=== PATIENT | female | born 1985 | race Caucasian/White ===

== ENCOUNTER 2016-11-12 10:40 | Emergency (ER) | payer MEDICAID, OTHER ==
[~2016-11-12] VITALS: Ht 165.1 cm; Wt 77.0 kg
[~2016-11-12 10:40] MED LIST: AUG875 PO; DOCU-144 PO; NITR-58 PO; PRENAT PO
[2016-11-12 10:55] VITALS: Ht 165.1 cm; Wt 77.0 kg
[2016-11-12 11:38] LABS: ADD UMIC YES; URINE BILIRUBIN (Dip) NEGATIVE (NEGATIVE); URINE BLOOD (Dip) 1+ (NEGATIVE); URINE COLOR LT. YELLOW (YELLOW); URINE GLUCOSE (Dip) NEGATIVE (NEGATIVE); URINE KETONES (Dip) NEGATIVE (NEGATIVE); URINE LEUKOCYTE ESTERASE (Dip) NEGATIVE (NEGATIVE); URINE NITRITE (Dip) NEGATIVE (NEGATIVE); URINE TOTAL PROTEIN (Dip) NEGATIVE (NEGATIVE); URINE UROBILINOGEN (Dip) 0.2 E.U./dL (0.1-1.0)
[2016-11-12 11:43] LABS: BASOPHILS % 0.3 % (0.0-2.0); EOSINOPHILS # 0.1 10^3/ul (0.0-0.5); EOSINOPHILS % 0.8 % (0.0-7.0); HEMATOCRIT 35.6 % (37.0-47.0); LYMPHOCYTES # 2.4 10^3/ul (0.8-2.9); LYMPHOCYTES % 23.7 % (15.0-51.0); MEAN CORPUSCULAR HEMOGLOBIN 28.5 pg (29.0-33.0); MEAN CORPUSCULAR HGB CONC 33.7 g/dl (32.0-37.0); MEAN CORPUSCULAR VOLUME 84.6 fl (82.0-101.0); MEAN PLATELET VOLUME 7.9 fl (7.4-10.4); MONOCYTE # 0.5 10^3/ul (0.3-0.9); MONOCYTES % 5.1 % (0.0-11.0); NEUTROPHILS % 70.1 % (39.0-77.0); PLATELET COUNT 307 10^3/UL (140-440); RED BLOOD COUNT 4.21 10^6/ul (4.20-5.40); RED CELL DISTRIBUTION WIDTH 14.5 % (11.5-14.5); UNCORRECTED WBC 9.9 10^3/ul (4.8-10.8); WHITE BLOOD COUNT 9.9 10^3/ul (4.8-10.8)
[2016-11-12 11:54] LABS: CONDITION 1; LH ANALYZER COMMENTS 1
--- NOTE | 2016-11-12 12:00 | RADRPT ---
PROCEDURE: US OB. CLINICAL INDICATION: Positive test. Vaginal bleeding. TECHNIQUE: Multiple sonographic images of the uterus were obtained. The images were revi ewed on a PACS workstation. COMPARISON: No prior studies are available for comparison. FINDINGS: There is a single live intrauterine gestation. heart rate is 131 beats per minute. Measurements were made in order to determine age. The results are as follows: BPD = 4.12 cm. HC = 15.97 cm. AC = 15.24 cm. FL = 2.74 cm. Estimated weight is 290 +/- 44 grams. LMP growth percentile is 77 %. Amniotic fluid index is 5.0 cm. Menstrual age by ultrasound dates is 19 weeks 0 days. The estimated date of delivery is 04/08/2017. Position is cephalic and placenta is posterior grade 1. There is no evidence for an abruption or joanna centa previa. IMPRESSION: 1. Single live intrauterine gestation of 19 weeks 0 days menstrual age by ultrasound dates. 2. The estimated date of delivery is 04/08/2017. RPTAT: QQ .Henrry Goss MD, MD Date Time Electronically viewed and signed by .Henrry Goss MD, on 11/12/2016 11:59 .R/
[2016-11-12 12:22] LABS: MUCUS,URINE FEW
--- NOTE | 2016-11-12 12:55 | ERD ---
ER Documentation Chief Complaint Date/Time DATE: 11/12/16 TIME: 12:52 Chief Complaint VAGINAL BLEEDING - 06/01/16 HPI Patient is a 31-year-old female who is with one spontaneous approximately 18 weeks complaining of on and off vaginal bleeding that has been going on for several weeks. Today she went to the OB doctor and she was told to come here to the emergency room because they were unable to find a heart tone on Doppler ultrasound. She denies any pain. Denies any nausea vomiting diarrhea. Denies fever. Denies any dysuria hematuria or urinary frequency. ROS All systems reviewed and are negative except as per history of present illness. Medications Home Meds Active Scripts Nitrofurantoin Monohyd Macrocr* (Macrobid*) 100 Mg Capsr, 100 MG PO BID for 10 Days, CAP Prov:MEENU CARMEN PA-C 08/16/15 Reported Medications Multivit/Min/Fol Ac/Iron/Pren* ( S*) 1 Tab Tab, 1 TAB PO DAILY 11/18/13 Docusate Sodium* (Colace*) 100 Mg Capsule, 100 MG PO BID Y NEEDED FOR CONSTIPATION 11/18/13 Amoxicillin-Clavulanate K* (Augmentin*) 875 Mg Tab, 875 MG PO Q12 X7 DAYS 11/18/13 Allergies Allergies: Coded Allergies: ceftriaxone sodium (Verified Allergy, Mild, hives, 10/31/12) PMhx/Soc History of Surgery: Yes (- ) Anesthesia Reaction: No Hx Neurological Disorder: No Hx Respiratory Disorders: No Hx Cardiac Disorders: No Hx Psychiatric Problems: No Hx Miscellaneous Medical Probl: No Hx Alcohol Use: No Hx Substance Use: No Hx Tobacco Use: No FmHx Family History: No diabetes Physical Exam Vitals Vital Signs Date Time Temp Pulse Resp B/P Pulse Ox O2 Delivery O2 Flow Rate FiO2 11/12/16 10:55 97.5 85 19 116/63 100 Physical Exam General: well developed, well nourished, alert, nontoxic, no distress Head: normocephalic, atraumatic Neck: Supple, nontender, no lymphadenopathy, no midline tenderness Respiratory: Clear to auscaultation bilaterally, speaks in full sentences, no use of accesory muscles or labored breathing, no rales, ronchi, or wheezing Cardiovascular: RRR, No murmurs GI: soft, non tender, non distended, negative murphys sign, negative mcburneys point tenderness, no cva tenderness bilaterally, no rebound or guarding Back: no midline tenderness, no step offs or bony abnormalities, sensation to light touch in tact Result Diagram: 11/12/16 1124 Results 24 hrs Laboratory Tests Test 11/12/16 11:24 Basophils # 0.010^3/ul Basophils % 0.3% Beta HCG, Quantitative 74700.0mIU/ml Blood Morphology Comment Eosinophils # 0.110^3/ul Eosinophils % 0.8% Hematocrit 35.6% Hemoglobin 12.0g/dl Lymphocytes # 2.410^3/ul Lymphocytes % 23.7% Mean Corpuscular Hemoglobin 28.5pg Mean Corpuscular Hemoglobin Concent 33.7g/dl Mean Corpuscular Volume 84.6fl Mean Platelet Volume 7.9fl Monocytes # 0.510^3/ul Monocytes % 5.1% Neutrophils # 7.010^3/ul Neutrophils % 70.1% Nucleated Red Blood Cells # 0.010^3/ul Nucleated Red Blood Cells % 0.0/100WBC Platelet Count 39865^3/UL Red Blood Count 4.2110^6/ul Red Cell Distribution Width 14.5% Urine Bilirubin NEGATIVE Urine Clarity CLEAR Urine Color LT. YELLOW Urine Epithelial Cells FEW Urine Glucose NEGATIVE% Urine Hemoglobin 1+ Urine Ketones NEGATIVE Urine Leukocyte Esterase NEGATIVE Urine Microscopic RBC 5-10/HPF Urine Microscopic WBC 2-5/HPF Urine Mucus FEW Urine Nitrite NEGATIVE Urine Specific Badin 1.015 Urine Total Protein NEGATIVE Urine Urobilinogen 0.2 E.U./dL Urine pH 6.0 White Blood Count 9.910^3/ul Procedures/MDM Patient presents with vaginal bleeding and she was sent here by primary care because they were unable to hear heart rate on Doppler. At this time her workup is normal and ultrasound was able to find heart tone 133 with a normal intrauterine gestational . Patient was given copies of all the labs and ultrasound reports that she can follow up with primary care. Recommended this patient follow up with her primary care doctor within 48 hours or return to the emergency room for any worsening of symptoms. However this time I do believe there is suitable for outpatient management. I answered all their questions and they agreed with the plan and were discharged home. Departure Diagnosis: Primary Impression: Threatened Condition: Stable Patient Instructions: Possible Miscarriage (Threatened ) Additional Instructions: Call your primary care doctor TOMORROW for an appointment during the next 1-2 days.See the doctor sooner or return here if your condition worsens before your appointment time. IRENE CONNOR PA-C Nov 12, 2016 12:55
== END 2016-11-12 12:57 | disposition home or self-care (01) ==
LOC: FTE 10:40
DX: O20.0 Threatened abortion (principal); Z3A.19 19 weeks gestation of pregnancy
CPT/HCPCS: 36415; 76801; 81001; 84702; 85025; 86900; 86901; Z7502; 81003

== ENCOUNTER 2017-04-06 14:22 | Inpatient (IN) | payer OTHER ==
[~2017-04-06] VITALS: Ht 165.1 cm; Wt 88.0 kg
[2017-04-06 14:38] VITALS: BP 104/58; PULSE 74; RESP 18
[2017-04-06 14:39] VITALS: Ht 165.1 cm; Wt 88.0 kg
[2017-04-06] MEDS ORDERED: LACTATED RINGER'S 1,000 ML IV SCH (14:50)
[2017-04-06] MEDS ORDERED: CEFAZOLIN 2 GM/50 ML (PMX) 50 ML IV ONE (15:00)
[2017-04-06] MEDS ORDERED: LIDOCAINE 1% (MPF) 30 ML INJ INJ PRN (15:00)
[2017-04-06] MEDS ORDERED: OXYTOCIN 30 UNITS/LR 500 ML IV PRN ×2 (15:00→20:00)
[2017-04-06] MEDS ORDERED: CARBOPROST 250 MCG INJ IM PRN ×2 (15:00→20:00)
[2017-04-06] MEDS ORDERED: OXYTOCIN 30 UNITS/LR 500 ML IV SCH ×3 (15:00→19:37)
[2017-04-06] MEDS ORDERED: LACTATED RINGER'S 1,000 ML IV PRN (15:00)
[2017-04-06] MEDS ORDERED: METHYLERGONOVINE 0.2 MG INJ IM PRN ×2 (15:00→20:00)
[2017-04-06] MEDS ORDERED: BUTORPHANOL 2 MG INJ IV PRN (15:00)
[2017-04-06] MEDS ORDERED: MISOPROSTOL 200 MCG TAB PR PRN ×2 (15:00→20:00)
[2017-04-06 15:21] LABS: ADD SCAN DIFF NO
[2017-04-06 15:23] LABS: BASOPHILS % 0.3 % (0.0-2.0); EOSINOPHILS # 0.1 10^3/ul (0.0-0.5); EOSINOPHILS % 1.1 % (0.0-7.0); HEMATOCRIT 33.3 % (37.0-47.0); HEMOGLOBIN 11.2 g/dl (12.0-16.0); LYMPHOCYTES # 2.5 10^3/ul (0.8-2.9); LYMPHOCYTES % 22.3 % (15.0-51.0); MEAN CORPUSCULAR HEMOGLOBIN 28.1 pg (29.0-33.0); MEAN CORPUSCULAR HGB CONC 33.6 g/dl (32.0-37.0); MEAN CORPUSCULAR VOLUME 83.7 fl (82.0-101.0); MEAN PLATELET VOLUME 10.9 fl (7.4-10.4); MONOCYTE # 0.5 10^3/ul (0.3-0.9); MONOCYTES % 4.4 % (0.0-11.0); NEUTROPHIL # 8.1 10^3/ul (1.6-7.5); NEUTROPHILS % 71.5 % (39.0-77.0); PLATELET COUNT 295 10^3/UL (140-415); RED BLOOD COUNT 3.98 10^6/ul (4.20-5.40); WHITE BLOOD COUNT 11.3 10^3/ul (4.8-10.8)
[2017-04-06] MEDS ORDERED: CLINDAMYCIN 900 MG/D5W (PMX) 50 ML IVPB SCH (15:30)
[2017-04-06 15:37] LABS: INR 0.88; PROTIME 11.9 Sec (12.2-14.2); PT RATIO 0.9
[2017-04-06 15:38] LABS: PARTIAL THROMBOPLASTIN TIME 26.4 Sec (25.0-35.0)
[2017-04-06] MEDS ORDERED: ONDANSETRON 4 MG INJ ONE (16:58)
[2017-04-06] MEDS ORDERED: EPHEDrine SULFATE 50 MG/5 ML SYG ONE (16:58)
[2017-04-06] MEDS ORDERED: OXYTOCIN 30 UNITS/LR 500 ML IV ONE (16:58)
[2017-04-06] MEDS ORDERED: METOCLOPRAMIDE 10 MG INJ ONE (16:59)
[2017-04-06] MEDS ORDERED: OXYTOCIN 10 UNIT INJ ONE (16:59)
[2017-04-06] MEDS ORDERED: morphine SULFATE/PF (10 MG/10 ML) INJ ONE (16:59)
--- NOTE | 2017-04-06 17:16 | PREOPHP ---
DATE OF ADMISSION: 04/06/2017 HISTORY OF PRESENT ILLNESS: This is a 32-year-old lady, 4, para 2 with 1 spontaneous aborti on, EDC 04/09/2017. She was admitted to labor and delivery area with mild irregular contractions. She had care in my [place] office and the care was uneventful. She has 2 previous sections, so seeks for repeat . PAST PERSONAL HISTORY: No history of diabetes, TB, asthma. ALLERGIES: NO ALLERGIES. SOCIAL HISTORY: Patient does not smoke. She does not drink. No history of TB, asthma. ALLERGIES: PATIENT IS ALLERGIC TO ROCEPHIN. GYNECOLOGIC HISTORY: She had menarche at the age of 15, every 28 days interval, 3 to 4 days duratio n and moderate in amount. FAMILY HISTORY: Grandmother on the mother's side has diabetes and hypertension. She is 4, para 1. Her first delivery was 2012 and second in 2013, both by . REVIEW OF SYSTEMS: BREASTS, HEART AND LUNGS: Within normal limits. ABDOMEN: Term size uterus. Estimated weight about 8 pounds. PELVIC: On admission revealed the cervix to be 2 to 3 cm dilated, 100% effaced station, floating in cephalic presentation with the bag of water intact. EXTREMITIES: No pedal edema. ADMITTING DIAGNOSIS: This is a 39 week' intrauterine in early labor with 2 previous C-sect ions. The patient was planned to have a repeat . The procedures were explained to the pat ient and she understood everything totally. The risks, benefits and alternatives were discussed wit h her as well. Dictated By: SAVANNA STEWART/BON Conf#: [id number] DID#: [id number]
[2017-04-06] MEDS ORDERED: morphine 2 MG INJ IV PRN ×2 (17:30)
[2017-04-06] MEDS ORDERED: EPHEDrine SULFATE 50 MG/5 ML SYG IV PRN (17:30)
[2017-04-06] MEDS ORDERED: HYDROmorphONE 1 MG/ML SYG IV PRN ×2 (17:30)
[2017-04-06] MEDS ORDERED: morphine SULFATE/PF (10 MG/10 ML) INJ SPINAL ONE (17:30)
[2017-04-06] MEDS ORDERED: ONDANSETRON 4 MG INJ IV PRN (17:30)
[2017-04-06] MEDS ORDERED: KETOROLAC 30 MG INJ IV PRN (17:30)
[2017-04-06] MEDS ORDERED: DIPHENHYDRAMINE 50 MG INJ IV PRN (17:30)
[2017-04-06] MEDS ORDERED: NALOXONE (0.4 MG/ML) INJ IV PRN (17:30)
[2017-04-06] MEDS ORDERED: LANOLIN 7 GM TUBE TOP PRN (20:00)
[2017-04-06] MEDS ORDERED: OXYCODONE/ACETAMINOPHEN (5/325) TAB PO PRN (20:00)
[2017-04-06] MEDS: SENNA/DOCUSATE NA (8.6MG/50MG) TAB PO SCH (21:00)
[2017-04-06 22:00] VITALS: BP 100/56; PULSE 79; RESP 18
[2017-04-07 00:15] VITALS: BP 97/4; PULSE 72; RESP 18
[2017-04-07] MEDS: LACTATED RINGER'S 1,000 ML IV SCH ×2 (02:17→10:27)
[2017-04-07 04:00] VITALS: BP 94/52; PULSE 83; RESP 18
[2017-04-07] MEDS: IBUPROFEN 600 MG TAB PO SCH ×4 (06:00→18:00)
--- NOTE | 2017-04-07 06:39 | OPR ---
DATE OF OPERATION: 04/06/2017 PREOPERATIVE DIAGNOSIS: 39-week intrauterine in early labor, with previous x2. POSTOPERATIVE DIAGNOSIS: 39-week intrauterine in early labor, with previous x2. OPERATION PERFORMED: Repeat low transverse section. SURGEON: Savanna Chinchilla MD CENTERLESS GRINDER TENDER: Dr. Victoria ANESTHESIA: Spinal. ANESTHESIOLOGIST: Dr. Landis OPERATION PERFORMED: Repeat low transverse section. OPERATIVE TECHNIQUE: Under spinal anesthesia, the patient was prepped and draped in the usual fashi on for abdominal surgery. After checking for the effect of the anesthesia, the previous Pfannenstie l scar was excised. About a 12-cm skin incision was performed. The incision was carried from the s kin up to the fascia. Upon opening the skin up to the fascia, small blood vessels were noted to be oozing, and these were all cauterized. The fascia was opened transversely, followed by splitting th e muscles vertically and the peritoneum vertically. Upon opening the abdominal cavity, the bladder blade was put in place. The lower uterine segment was noted to be very thinned out and there was a dehiscence, 2 inches, mid portion of the lower uterine segment, so that an incision was performed fr om the serosa up to the endometrium about 2 inches above the lower uterine segment. The incision wa s carried from the serosa up to the endometrium, and the gray was carried sideways with the aid of m y 2 fingers. My left hand was inserted in the lower segment of the uterus and the bag of water was ruptured. The baby's head was delivered. The baby's airway was quickly suctioned of amniotic fluid , then the anterior shoulder, posterior shoulder, and the rest of the body of the baby was delivered . The baby's airway was quickly suctioned of amniotic fluid and the baby was handed to the nursery nurse. The placenta was delivered manually and complete. The uterus was exteriorized. The uterus was cleansed with a wet lap sponge to make sure that no membranes were left behind. After a c orrect sponge count, the uterus was closed in the usual fashion using #1 chromic for the first layer , a continuous locking suture was used, followed by #1 chromic for the second layer, imbricating sut ures were used. Bleeders were checked and there was no bleeding noted. The back of the uterus was checked for any hematoma and there was none noted. Both tubes and ovaries were inspected. They wer e healthy-looking. Then the uterus was put back to the pelvic cavity. Once again, the uterine inci roberto was checked for any bleeders and there was no bleeding noted. After correct sponge count, need le count and instrument count, as confirmed by the fire protection engineering technician and school bus driver/teacher assistant, the abdomen was closed in the usual fashion using 0 Vicryl for the peritoneum, 0 Vicryl for the muscles. For the fascia 0 Vicryl continuous stitch was used, followed by a few tlnyva-ne-lmodp sutures. For the subcutaneous tissue it was closed with 3-0 Vicryl and the skin was closed with 3-0 Vicryl subcuticular suture wa s used. The patient tolerated the procedure well. Estimated blood loss was about 600 mL. Vital sig ns were stable during and after the procedure. She delivered a healthy baby boy at 1730 on 04/06/20 17, Apgars of 9 and 9, weighing 7 pounds 3 ounces, 19 inches long. Dictated By: SAVANNA STEWART/BON Conf#: [id number] DID#: [id number]
[2017-04-07 07:07] LABS: ADD SCAN DIFF NO
[2017-04-07 07:20] LABS: BASOPHILS % 0.2 % (0.0-2.0); EOSINOPHILS # 0.1 10^3/ul (0.0-0.5); EOSINOPHILS % 0.8 % (0.0-7.0); HEMATOCRIT 30.7 % (37.0-47.0); HEMOGLOBIN 9.9 g/dl (12.0-16.0); LYMPHOCYTES # 1.4 10^3/ul (0.8-2.9); LYMPHOCYTES % 12.2 % (15.0-51.0); MEAN CORPUSCULAR HEMOGLOBIN 27.6 pg (29.0-33.0); MEAN CORPUSCULAR HGB CONC 32.2 g/dl (32.0-37.0); MEAN CORPUSCULAR VOLUME 85.5 fl (82.0-101.0); MEAN PLATELET VOLUME 10.4 fl (7.4-10.4); MONOCYTE # 0.7 10^3/ul (0.3-0.9); MONOCYTES % 5.5 % (0.0-11.0); NEUTROPHIL # 9.5 10^3/ul (1.6-7.5); NEUTROPHILS % 80.9 % (39.0-77.0); PLATELET COUNT 235 10^3/UL (140-415); RED BLOOD COUNT 3.59 10^6/ul (4.20-5.40); WHITE BLOOD COUNT 11.8 10^3/ul (4.8-10.8)
[2017-04-07 08:00] VITALS: BP 105/58; PULSE 84; RESP 18
[2017-04-07] MEDS: SENNA/DOCUSATE NA (8.6MG/50MG) TAB PO SCH ×2 (09:17→21:27)
[2017-04-07 12:30] VITALS: BP 101/54; PULSE 91; RESP 14
[2017-04-07 16:49] VITALS: BP 103/50; PULSE 77; RESP 16
[2017-04-07] MEDS ORDERED: MAGNESIUM HYDROXIDE 30ML CUP PO ONE (18:00)
[2017-04-07] MEDS: OXYCODONE/ACETAMINOPHEN (5/325) TAB PO PRN (18:11)
[2017-04-07 20:00] VITALS: BP 100/52; PULSE 93; RESP 18
[2017-04-07] MEDS ORDERED: BISACODYL (EC) 5 MG TAB PO ONE (21:00)
[2017-04-08] MEDS: IBUPROFEN 600 MG TAB PO SCH ×5 (00:20→23:46)
[2017-04-08 04:00] VITALS: BP 96/56; PULSE 71; RESP 18
[2017-04-08 08:00] VITALS: BP 87/63; PULSE 100; RESP 16
[2017-04-08] MEDS: SENNA/DOCUSATE NA (8.6MG/50MG) TAB PO SCH ×2 (09:28→21:37)
[2017-04-08 12:24] VITALS: BP 89/58; PULSE 89
[2017-04-08 19:54] VITALS: BP 96/51; PULSE 82; RESP 18
[2017-04-09 04:00] VITALS: BP 94/58; PULSE 66; RESP 18
[2017-04-09] MEDS: IBUPROFEN 600 MG TAB PO SCH ×3 (05:33→18:00)
[2017-04-09 07:30] VITALS: BP 107/63; PULSE 67; RESP 18
[2017-04-09 07:46] LABS: ADD SCAN DIFF NO
[2017-04-09 07:50] LABS: BASOPHILS % 0.2 % (0.0-2.0); EOSINOPHILS # 0.2 10^3/ul (0.0-0.5); EOSINOPHILS % 1.5 % (0.0-7.0); HEMATOCRIT 28.1 % (37.0-47.0); HEMOGLOBIN 9.2 g/dl (12.0-16.0); LYMPHOCYTES # 2.5 10^3/ul (0.8-2.9); LYMPHOCYTES % 23.4 % (15.0-51.0); MEAN CORPUSCULAR HGB CONC 32.7 g/dl (32.0-37.0); MEAN CORPUSCULAR VOLUME 85.7 fl (82.0-101.0); MEAN PLATELET VOLUME 10.5 fl (7.4-10.4); MONOCYTE # 0.6 10^3/ul (0.3-0.9); MONOCYTES % 5.6 % (0.0-11.0); NEUTROPHIL # 7.3 10^3/ul (1.6-7.5); NEUTROPHILS % 68.7 % (39.0-77.0); PLATELET COUNT 277 10^3/UL (140-415); RED BLOOD COUNT 3.28 10^6/ul (4.20-5.40); RED CELL DISTRIBUTION WIDTH 15.6 % (11.5-14.5); WHITE BLOOD COUNT 10.7 10^3/ul (4.8-10.8)
[2017-04-09] MEDS ORDERED: BISACODYL 10 MG SUPP PR SCH (08:00)
[2017-04-09] MEDS: SENNA/DOCUSATE NA (8.6MG/50MG) TAB PO SCH (08:21)
[2017-04-09] MEDS ORDERED: DIPHTH/TET/ACEL PERTUSS (ADULT) 0.5 ML VIAL IM* ONE (09:00)
[2017-04-09] MEDS ORDERED: BISACODYL 10 MG SUPP PR PRN (10:00)
[2017-04-09] MEDS: OXYCODONE/ACETAMINOPHEN (5/325) TAB PO PRN (17:06)
== END 2017-04-09 19:13 | disposition home or self-care (01) | DRG 766 ==
LOC: L-D 14:22 → PP1 22:00
PROVIDERS: ADMIT Obstetrics & Gynecology; ATTEND Obstetrics & Gynecology
PROC: 10D00Z1 Extraction of Products of Conception, Low, Open Approach (ICD-10-PCS; principal; 2017-04-06 17:00)
PROC: 3E00X4Z Introduction of Serum, Toxoid and Vaccine into Skin and Mucous Membranes, External Approach (ICD-10-PCS; 2017-04-09)
DX: O34.211 Maternal care for low transverse scar from previous cesarean delivery (principal); E66.01 Morbid (severe) obesity due to excess calories; Z23 Encounter for immunization; O99.214 Obesity complicating childbirth; Z68.32 Body mass index [BMI] 32.0-32.9, adult; Z3A.39 39 weeks gestation of pregnancy; Z37.0 Single live birth
CPT/HCPCS: 85025; 85610; 85730; 86592; 86850; 86900; 86901; 86920; 87340; 90715; 94760; 99464; J1170; J1885; J2274; J2405; J2590; J2765; J7120